=== PATIENT | female | born 1970 | race Caucasian/White ===

== ENCOUNTER 2023-01-02 07:05 | Day surgery (SDC) | payer BC ==
[~2023-01-02 07:05] MED LIST: Lactated Ringers 1,000 ML IV SCH; Sodium Chloride 0.9% 10 ML Syringe FLUSH PRN
[2023-01-02] MEDS ORDERED: Propofol 200 MG/20 ML SDV IV ONE (07:06)
[2023-01-02] MEDS ORDERED: Lidocaine 2% 5 ML SDV IV ONE (07:06)
[2023-01-02] MEDS ORDERED: Simethicone Drops 40 MG/0.6 ML 30 ML Bottle ONE (08:42)
[2023-01-02 10:14] VITALS: BP 138/94; PULSE 55
== END 2023-01-02 10:08 | disposition home or self-care (01) ==
LOC: FB.SDS 07:05
PROVIDERS: ATTEND Surgery
DX: Z12.11 Encounter for screening for malignant neoplasm of colon (principal); K57.30 Diverticulosis of large intestine without perforation or abscess without bleeding; F41.9 Anxiety disorder, unspecified; F32.A Depression, unspecified; I10 Essential (primary) hypertension; Z90.49 Acquired absence of other specified parts of digestive tract; Z79.899 Other long term (current) drug therapy; Z88.1 Allergy status to other antibiotic agents; Z87.891 Personal history of nicotine dependence
CPT/HCPCS: 45378; A9270; J2704; J7120